=== PATIENT | male | born 1995 | race African-American/Black ===

== ENCOUNTER 2017-11-24 16:08 | Emergency (ER) | payer OTHER ==
[2017-11-24 18:08] LABS: BASO % 0.3 % (0.0-1.0); EOS # 0.2 10^3/uL (0.0-0.50); EOS % 3.6 % (0.0-3.0); HEMATOCRIT 48.7 % (42.0-52.0); HEMOGLOBIN 16.8 g/dl (14.0-18.0); IMMATURE GRANULOCYTE % 0.2 % (0-0); LYMPH # 2.1 10^3/uL (1.5-6.5); LYMPH % 36.1 % (24.0-44.0); MEAN CORPUSCULAR HEMOGLOBIN 31.9 pg (27.0-33.0); MEAN CORPUSCULAR HGB CONC 34.5 g/dl (32.0-36.5); MEAN CORPUSCULAR VOLUME 92.6 fl (80.0-96.0); MONO # 0.5 10^3/uL (0.0-0.8); MONO % 8.7 % (0.0-5.0); NEUTROPHILS # 2.9 10^3/uL (1.8-7.7); NEUTROPHILS % 51.1 % (36.0-66.0); PLATELET COUNT, AUTOMATED 227 10^3/uL (150-450); RED BLOOD COUNT 5.26 10^6/uL (4.30-6.10); RED CELL DISTRIBUTION WIDTH 13.2 % (11.5-14.5); WHITE BLOOD COUNT 5.8 10^3/uL (4.0-10.0)
[2017-11-24 18:37] LABS: ANION GAP 4 MEQ/L (8-16); BLOOD UREA NITROGEN 12 MG/DL (7-18); CALCIUM LEVEL 9.5 MG/DL (8.5-10.1); CARBON DIOXIDE LEVEL 32 MEQ/L (21-32); CHLORIDE LEVEL 103 MEQ/L (98-107); CREATININE FOR GFR 1.05 MG/DL (0.70-1.30); GLOMERULAR FILTRATION RATE > 60.0 (>60); GLUCOSE, FASTING 81 MG/DL (70-100); POTASSIUM SERUM 4.4 MEQ/L (3.5-5.1); SODIUM LEVEL 139 MEQ/L (136-145)
[2017-11-24 18:57] LABS: CONTROL LINE INT CTR LINE PRESENT; HIV SCRN NEGATIVE (NEGATIVE); HIV SCRN1 NEGATIVE (NEGATIVE)
[2017-11-24] MEDS: ONDANSETRON 4MG/2ML VIAL (J2405) IV (19:06)
[2017-11-24] MEDS: MORPHINE 4 MG/ML 1ML SYRINGE IV (19:07)
[2017-11-24 20:13] LABS: CHLAMYDIA DNA AMPLIFICATION POSITIVE (NEGATIVE); GC DNA AMPLIFICATION NEGATIVE (NEGATIVE)
[2017-11-25 10:53] LABS: HEPATITIS B SURFACE ANTIBODY POSITIVE (POSITIVE)
[2017-11-25 11:05] LABS: HEPATITIS B SURFACE ANTIGEN NEGATIVE (NEGATIVE)
== END 2017-11-24 19:40 | disposition home or self-care (01) ==
LOC: M ED 16:08
DX: K65.1 Peritoneal abscess (principal); Z88.8 Allergy status to other drugs, medicaments and biological substances
CPT/HCPCS: J2405

== ENCOUNTER 2019-09-28 11:29 | Emergency (ER) | payer OTHER ==
[~2019-09-28] VITALS: Ht 170.2 cm; Wt 61.4 kg
[~2019-09-28 11:29] MED LIST: AZIT500T5 PO; BACT800T5 PO
[2019-09-28] MEDS ORDERED: LIDOCAINE W/EPINEPHRINE 1% 20ML VIAL As Ordered ONE (12:27)
[2019-09-28] MEDS ORDERED: LIDOCAINE W/EPINEPHRINE 1% 20ML VIAL SC ONE (12:30)
[2019-09-28 12:59] VITALS: BP 133/77
== END 2019-09-28 13:02 | disposition home or self-care (01) ==
LOC: M ED 11:29
DX: S01.511A Laceration without foreign body of lip, initial encounter (principal); W19.XXXA Unspecified fall, initial encounter; Y92.099 Unspecified place in other non-institutional residence as the place of occurrence of the external cause; Y93.9 Activity, unspecified; Y99.9 Unspecified external cause status; Z88.6 Allergy status to analgesic agent

== ENCOUNTER 2019-10-05 15:27 | Emergency (ER) | payer OTHER ==
[~2019-10-05] VITALS: Ht 170.2 cm; Wt 59.1 kg
[2019-10-05 15:27] VITALS: BP 145/74
== END 2019-10-05 16:13 | disposition home or self-care (01) ==
LOC: M ED 15:27
DX: Z48.02 Encounter for removal of sutures (principal); Z88.6 Allergy status to analgesic agent

== ENCOUNTER 2020-10-09 20:33 | Emergency (ER) | payer OTHER ==
[~2020-10-09] VITALS: Ht 170.2 cm; Wt 62.0 kg
[2020-10-09 21:41] LABS: BASO % 0.5 % (0.0-1.0); EOS # 0.2 10^3/uL (0.0-0.5); EOS % 4.3 % (0.0-3.0); HEMATOCRIT 48.4 % (42.0-52.0); LYMPH # 1.5 10^3/uL (1.5-5.0); LYMPH % 26.8 % (24.0-44.0); MEAN CORPUSCULAR HEMOGLOBIN 31.4 pg (27.0-33.0); MEAN CORPUSCULAR HGB CONC 33.1 g/dl (32.0-36.5); MEAN CORPUSCULAR VOLUME 94.9 fl (80.0-96.0); MONO # 0.4 10^3/uL (0.0-0.8); NEUTROPHILS # 3.4 10^3/uL (1.5-8.5); NEUTROPHILS % 61.2 % (36.0-66.0); PLATELET COUNT, AUTOMATED 227 10^3/uL (150-450); WHITE BLOOD COUNT 5.6 10^3/uL (4.0-10.0)
[2020-10-09 21:51] LABS: BLOOD UREA NITROGEN 16 MG/DL (7-18); CALCIUM LEVEL 9.2 MG/DL (8.5-10.1); CARBON DIOXIDE LEVEL 27 MEQ/L (21-32); CHLORIDE LEVEL 105 MEQ/L (98-107); CREATININE FOR GFR 1.14 MG/DL (0.70-1.30); GLOMERULAR FILTRATION RATE > 60.0 (>60); GLUCOSE, FASTING 68 MG/DL (70-100); SODIUM LEVEL 139 MEQ/L (136-145)
[2020-10-09] MEDS ORDERED: LIDOCAINE 4% CREAM 5GM (LMX4) TOP ONE (22:00)
--- NOTE | 2020-10-09 22:05 | REPVR ---
PROCEDURE INFORMATION: Exam: XR Chest, 1 View Exam date and time: 10/09/2020 9:45 PM Age: 25 years old Clinical indication: Shortness of breath; Additional info: Sudden onset SOB TECHNIQUE: Imaging protocol: XR of the chest Views: 1 view. COMPARISON: No relevant prior studies available. FINDINGS: Lungs: Unremarkable. No consolidation. Pleural space: Unremarkable. No pleural effusion. No pneumothorax. Heart/Mediastinum: Unremarkable. No cardiomegaly. Bones/joints: Unremarkable. IMPRESSION: No acute findings. Electronically signed by: Ash Sargent On 10/09/2020 22:05:32 PM
[2020-10-09] MEDS: ALBUTEROL 90 MCG/ACT 8GM HFA INHALER INH SCH ×2 (22:27→22:44)
[2020-10-09] MEDS ORDERED: ANEC4CRE3 TOP (22:47)
[2020-10-09 22:52] VITALS: BP 133/103
--- NOTE | 2020-10-10 08:43 | ECGEPIP ---
[facility] - ED Test Date: 2020-10-09 Pat Name: WALDO NAQVI Department: Room: - Gender: Male Senior Ssis Developer: [place] : 1995 Requested By: LEAH Mathew PA-C Order Number: [id number] Reading MD: Hiram Macias Measurements Intervals [place] Rate: 81 P: 82 RI: 174 QRS: 67 QRSD: 92 T: 56 QT: 358 QTc: 416 Interpretive Statements SINUS RHYTHM suspect early repolarization Comparison tracing not on file Electronically Signed on 10-10-2020 8:43:10 EST by Hiram Macias
== END 2020-10-09 22:59 | disposition home or self-care (01) ==
LOC: M ED 20:33
DX: R07.89 Other chest pain (principal); R06.02 Shortness of breath; Z88.6 Allergy status to analgesic agent

== ENCOUNTER 2022-04-07 16:34 | Emergency (ER) | payer OTHER ==
[~2022-04-07] VITALS: Ht 172.7 cm; Wt 59.1 kg
[~2022-04-07 16:34] MED LIST changes: +ANEC4CRE3 TOP
[2022-04-07 19:53] LABS: BASO % 0.5 % (0.0-1.0); EOS # 0.3 10^3/uL (0.0-0.5); EOS % 3.3 % (0.0-3.0); HEMATOCRIT 41.9 % (42.0-52.0); HEMOGLOBIN 14.7 g/dl (13.5-17.5); LYMPH # 1.3 10^3/uL (1.5-5.0); LYMPH % 14.5 % (24.0-44.0); MEAN CORPUSCULAR HEMOGLOBIN 33.6 pg (27.0-33.0); MEAN CORPUSCULAR HGB CONC 35.1 g/dl (32.0-36.5); MEAN CORPUSCULAR VOLUME 95.9 fl (80.0-96.0); MONO % 11.1 % (2.0-8.0); NEUTROPHILS # 6.2 10^3/uL (1.5-8.5); NEUTROPHILS % 69.8 % (36.0-66.0); PLATELET COUNT, AUTOMATED 201 10^3/uL (150-450); RED BLOOD COUNT 4.37 10^6/uL (4.30-6.10); WHITE BLOOD COUNT 8.9 10^3/uL (4.0-10.0)
[2022-04-07] MEDS ORDERED: CVS1CRE56 TOP (22:46)
[2022-04-07 22:50] VITALS: BP 168/76
== END 2022-04-07 22:54 | disposition home or self-care (01) ==
LOC: EDBD 16:34 → M ED 16:34
DX: R07.9 Chest pain, unspecified (principal); R79.1 Abnormal coagulation profile; B35.9 Dermatophytosis, unspecified; Z53.9 Procedure and treatment not carried out, unspecified reason; Z88.6 Allergy status to analgesic agent

== ENCOUNTER 2022-11-17 01:06 | Emergency (ER) | payer OTHER ==
[~2022-11-17] VITALS: Ht 172.7 cm; Wt 65.2 kg
[~2022-11-17 01:06] MED LIST changes: +CVS1CRE56 TOP
[2022-11-17 05:43] VITALS: BP 155/90
== END 2022-11-17 09:42 | disposition home or self-care (01) ==
LOC: M ED 01:06
DX: S06.0X0A Concussion without loss of consciousness, initial encounter (principal); V40.6XXA Car passenger injured in collision with pedestrian or animal in traffic accident, initial encounter; Y92.411 Interstate highway as the place of occurrence of the external cause; Z88.6 Allergy status to analgesic agent; Z79.899 Other long term (current) drug therapy